=== PATIENT | female | born 1990 | race Caucasian/White ===

== ENCOUNTER 2021-10-15 13:42 | Outpatient (REF) | payer OTHER, SELFPAY ==
[2021-10-15 14:35] LABS: Influenza A PCR NEGATIVE (Negative); Influenza B PCR NEGATIVE (Negative); Resp Syncy Virus RNA Qual PCR NEGATIVE (Negative); SARS COV2 PCR INHOUSE POSITIVE (Negative)
== END 2021-10-15 13:43 | disposition home or self-care (01) ==
LOC: HO.LNP 13:42
PROVIDERS: Visit Provider Nurse Practitioner Family
DX: Z20.822 Contact with and (suspected) exposure to COVID-19 (principal); R43.2 Parageusia; R52 Pain, unspecified
CPT/HCPCS: 0241U